=== PATIENT | female | born 1995 | race Caucasian/White ===

== ENCOUNTER 2019-07-24 19:40 | Emergency (ER) | payer OTHER ==
[~2019-07-24] VITALS: Ht 165.1 cm; Wt 59.1 kg
[~2019-07-24 19:40] MED LIST: LOESTRIN 21 1.51 TAB PO; PRIL40 PO; PROTONIX 40MG T40 MG PO; ZOFRAN 4MG T4 MG/TAB PO
[2019-07-24 20:35] VITALS: TEMP 98
[2019-07-24] MEDS ORDERED: VYVANSE20 MG PO (22:01)
[2019-07-25 00:15] VITALS: BP 126/72; PULSE 96
[2019-07-26] MEDS ORDERED: ZOFRAN ODT4 MG PO (19:09)
== END 2019-07-25 00:16 | disposition home or self-care (01) ==
LOC: COL.ER 19:40
DX: S00.83XA Contusion of other part of head, initial encounter (principal); F90.9 Attention-deficit hyperactivity disorder, unspecified type; Z88.8 Allergy status to other drugs, medicaments and biological substances; Y04.8XXA Assault by other bodily force, initial encounter; Y92.410 Unspecified street and highway as the place of occurrence of the external cause
CPT/HCPCS: J1885

== ENCOUNTER 2019-07-26 17:16 | Emergency (ER) | payer OTHER ==
[~2019-07-26] VITALS: Ht 165.1 cm; Wt 59.1 kg
[~2019-07-26 17:16] MED LIST changes: +VYVANSE20 MG PO
[2019-07-26 17:28] VITALS: BP 113/63
[2019-07-26] MEDS ORDERED: ZOFRAN ODT4 MG PO (19:09)
[2019-07-26 19:20] VITALS: PULSE 72; TEMP 98.2
== END 2019-07-26 19:20 | disposition home or self-care (01) ==
LOC: COL.ER 17:16
DX: G44.309 Post-traumatic headache, unspecified, not intractable (principal); Y04.0XXA Assault by unarmed brawl or fight, initial encounter
CPT/HCPCS: J1200; J2550